=== PATIENT | female | born 1990 | race Caucasian/White ===

== ENCOUNTER 2019-06-27 06:01 | Emergency (ER) | payer SELFPAY ==
[2019-06-27] MEDS ORDERED: Ketorolac 60 MG/2 ML SDV IM ONE (07:08)
[2019-06-27 07:11] VITALS: BP 119/72
--- NOTE | 2019-06-27 07:16 | EDM.PDOC ---
ED HPI GENERAL MEDICAL PROBLEM - General Chief Complaint: Abdominal Pain Stated Complaint: SEVERE LOWER ABD PAIN Time Seen by Provider: 06/27/19 07:00 Source of Information: Reports: Patient, Old Records History Limitations: Reports: No Limitations - History of Present Illness INITIAL COMMENTS - FREE TEXT/NARRATIVE: 29 yo female from [place] presents with pelvic pain that began about 3 days ago. Pain is constant, but she has surges of severe pain. No fever, but has " hot flashes". No vaginal discharge. May have a missed menses. Has not been to her doctor. Was taking Midol until 7 pm last night without relief. No dysuria. Is having some loose stools. No vomiting. Feels like her cervix is burning or dilating. Here with her male significant other. Onset: Gradual Onset Date: 06/24/19 Duration: Day(s): (3), Getting Worse, Waxing/Waning Location: Reports: Pelvis Quality: Reports: Dull, Other (with abrupt exacerbations.) Severity: Moderate (most of the time.) Improves with: Reports: None Worsens with: Reports: Other (time) Context: Reports: Other (See HPI) Associated Symptoms: Reports: Other (loose stools, ? missed menses). Denies: Fever/Chills, Nausea/Vomiting Treatments DOORSHAKER: Reports: Other (see below) (none for 12 hrs) lower abd/pelvic pain Pain Score (Numeric/FACES): 5 - Related Data Allergies Allergy/AdvReac Type Severity Reaction Status Date / Time No Known Allergies Allergy Verified 06/27/19 07:20 Home Meds: Home Meds hydrOXYzine HCl [hydrOXYzine] 1 tab PO QID PRN 05/09/19 [History] Past Medical History HEENT History: Reports: Impaired Vision [employer] History: Reports: , Spontaneous Musculoskeletal History: Reports: Fracture Neurological History: Reports: Headaches, Chronic, Head Trauma, Seizure Psychiatric History: Reports: Anxiety - Infectious Disease History Infectious Disease History: Reports: Chicken Pox - Past Surgical History Female Surgical History: Reports: Section, Tubal Ligation Social & Family History - Tobacco Use Smoking Status *Q: Current Every Day Smoker Years of Tobacco use: 15 Packs/Tins Daily: 0.5 - Caffeine Use Caffeine Use: Reports: Coffee, Soda - Recreational Drug Use Recreational Drug Use: No ED ROS GENERAL - Review of Systems Review Of Systems: See Below Constitutional: Reports: No Symptoms HEENT: Reports: No Symptoms Respiratory: Reports: No Symptoms Cardiovascular: Reports: No Symptoms Endocrine: Reports: No Symptoms GI/Abdominal: Reports: Diarrhea, Nausea (mild at times). Denies: Abdominal Pain , Anorexia, Black Stool, Bloody Stool, Constipation, Distension, Flatus, Hematemesis, Hematochezia, Melena, Vomiting : Reports: Pain (pelvic). Denies: Discharge, Dysuria, Flank Pain, Hematuria, Urgency, Urinary Retention Musculoskeletal: Reports: No Symptoms Skin: Reports: No Symptoms Neurological: Reports: No Symptoms Psychiatric: Reports: No Symptoms ED EXAM, RENAL/ - Physical Exam Exam: See Below Exam Limited By: No Limitations General Appearance: Alert, WD/WN, No Apparent Distress Eye Exam: Bilateral Eye: Normal Inspection Ears: Normal External Exam, Normal Canal, Hearing Grossly Normal, Normal TMs Nose: Normal Inspection, No Blood Throat/Mouth: Normal Inspection, Normal Lips, Normal Oropharynx, Normal Voice, No Airway Compromise Head: Atraumatic, Normocephalic Neck: Normal Inspection Respiratory/Chest: No Respiratory Distress, Lungs Clear, Normal Breath Sounds, No Accessory Muscle Use Cardiovascular: Regular Rate, Rhythm, No Edema GI/Abdominal: Normal Bowel Sounds, Soft, Non-Tender, No Distention (Female) Exam: Other (some extreme lower pelvic tenderness with palpation. Cervical motion tenderness noted with pelvic exam. ) Back Exam: Normal Inspection. No: CVA Tenderness (R), CVA Tenderness (L) Extremities: Normal Inspection, Normal Range of Motion, Non-Tender, No Pedal Edema Neurological: Alert, Oriented, CN II-XII Intact, Normal Cognition, No Motor/ Sensory Deficits Psychiatric: Normal Affect, Normal Mood Skin Exam: Warm, Dry, Intact, Normal Color, No Rash Course - Vital Signs Last Recorded V/S: Last Vital Signs Temp 36.6 C 06/27/19 09:21 Pulse 70 06/27/19 09:21 Resp 15 06/27/19 09:21 BP 119/72 06/27/19 09:21 Pulse Ox 100 06/27/19 09:21 - Orders/Labs/Meds Orders: Active Orders 24 hr Category Date Time Status Transvaginal Non OB [US] Stat Exams 06/27/19 Taken CHLAMYDIA/GC AMPLIFICATION Stat Lab 06/27/19 09:21 Received CULTURE GENITAL [RM] Stat Lab 06/27/19 09:21 Received Doxycycline [Vibramycin] Med 06/27/19 09:37 Once 100 mg PO ONETIME ONE cefTRIAXone [Rocephin] Med 06/27/19 09:37 Once 500 mg IM ONETIME ONE Labs: Laboratory Tests 06/27/19 06/27/19 06/27/19 Range/Units 07:07 07:09 07:09 WBC 11.9 H (4.5-11.0) K/uL RBC 4.27 (3.30-5.50) M/uL Hgb 13.0 (12.0-15.0) g/dL Hct 40.0 (36.0-48.0) % MCV 94 (80-98) fL MCH 30 (27-31) pg MCHC 33 (32-36) % Plt Count 236 (150-400) K/uL C-Reactive Protein (0.0-0.3) mg/dL Urine Color Yellow (YELLOW) Urine Appearance Cloudy A (CLEAR) Urine pH 6.0 (5.0-8.0) Ur Specific Roxie 1.025 (1.008-1.030) Urine Protein Negative (NEGATIVE) mg/dL Urine Glucose (UA) Normal (NEGATIVE) mg/dL Urine Ketones Negative (NEGATIVE) mg/dL Urine Occult Blood Negative (NEGATIVE) Urine Nitrite Negative (NEGATIVE) Urine Bilirubin Negative (NEGATIVE) Urine Urobilinogen 0.2 (0.2-1.0) EU/dL Ur Leukocyte Esterase Trace H (NEGATIVE) Urine RBC 0-5 (0-5) Urine WBC 0-5 (0-5) Ur Epithelial Cells Few Amorphous Sediment Not seen Urine Bacteria Few Urine Mucus Rare Urine HCG, Qual Negative Fluid Type Fluid pH 06/27/19 06/27/19 Range/Units 07:15 09:20 WBC (4.5-11.0) K/uL RBC (3.30-5.50) M/uL Hgb (12.0-15.0) g/dL Hct (36.0-48.0) % MCV (80-98) fL MCH (27-31) pg MCHC (32-36) % Plt Count (150-400) K/uL C-Reactive Protein 7.25 H (0.0-0.3) mg/dL Urine Color (YELLOW) Urine Appearance (CLEAR) Urine pH (5.0-8.0) Ur Specific Roxie (1.008-1.030) Urine Protein (NEGATIVE) mg/dL Urine Glucose (UA) (NEGATIVE) mg/dL Urine Ketones (NEGATIVE) mg/dL Urine Occult Blood (NEGATIVE) Urine Nitrite (NEGATIVE) Urine Bilirubin (NEGATIVE) Urine Urobilinogen (0.2-1.0) EU/dL Ur Leukocyte Esterase (NEGATIVE) Urine RBC (0-5) Urine WBC (0-5) Ur Epithelial Cells Amorphous Sediment Urine Bacteria Urine Mucus Urine HCG, Qual Fluid Type Pelvic fluid Fluid pH 7 Meds: Medications Discontinued Medications Generic Name Dose Route Start Last Admin Trade Name Freq PRN Reason Stop Dose Admin Ketorolac Tromethamine 60 mg 06/27/19 07:08 06/27/19 07:21 Toradol IM 06/27/19 07:09 60 mg ONETIME ONE Administration Metronidazole 500 mg 06/27/19 09:36 Metronidazole PO 06/27/19 09:37 ONETIME ONE - Radiology Interpretation Free Text/Narrative:: pelvic US-neg Departure - Departure Time of Disposition: 10:00 Disposition: Home, Self-Care 01 Condition: Fair Clinical Impression: Pelvic inflammatory disease (PID) - Discharge Information *PRESCRIPTION DRUG MONITORING PROGRAM REVIEWED*: No *COPY OF PRESCRIPTION DRUG MONITORING REPORT IN PATIENT DAYAN: No Instructions: Pelvic Inflammatory Disease, [id number] Referrals: Fariba Hernandez MD [Primary Care Provider] - Forms: ED Department Discharge Additional Instructions: Take metronidazole and doxycycline as directed for infection. Take ibuprofen 600 mg every 6 hrs with food and/or acetaminophen up to 1000 mg every 6 hrs as needed for pain control. Recheck with your provider on Sunday to follow up on outstanding cultures. No sex without condoms until you are culture negative for infections. - My Orders Last 24 Hours: My Active Orders 06/27/19 Transvaginal Non OB [US] Stat 06/27/19 09:21 CHLAMYDIA/GC AMPLIFICATION Stat CULTURE GENITAL [RM] Stat 06/27/19 09:37 Doxycycline [Vibramycin] 100 mg PO ONETIME ONE cefTRIAXone [Rocephin] 500 mg IM ONETIME ONE - Assessment/Plan Last 24 Hours: My Active Orders 06/27/19 Transvaginal Non OB [US] Stat 06/27/19 09:21 CHLAMYDIA/GC AMPLIFICATION Stat CULTURE GENITAL [RM] Stat 06/27/19 09:37 Doxycycline [Vibramycin] 100 mg PO ONETIME ONE cefTRIAXone [Rocephin] 500 mg IM ONETIME ONE
--- NOTE | 2019-06-27 08:58 | CRLUS ---
INDICATION: Pelvic pain. FINDINGS: A transabdominal and endovaginal pelvic ultrasound shows a uterus of normal size, contour, and echogenicity. Normal appearance of the endometrial stripe which measures 5 mm in thickness. Normal sonographic appearance of the ovaries with a 1.3 cm dominant follicle in the right ovary. The right ovary measures 5.1 x 2.3 x 2.2 cm and left ovary measures 4.2 x 3.1 x 1.8 cm. Color and spectral Doppler analysis shows normal arterial and venous blood flow to both ovaries. Trace amount of simple free fluid in the pelvis. IMPRESSION: 1. No acute abnormalities of the uterus or ovaries identified. Dictated by Dash Velasquez MD @ 06/27/2019 8:58:07 AM Dictated by: Dash Velasquez MD @ 06/27/2019 08:58:16 (Electronically Signed)
[2019-06-27] MEDS ORDERED: metroNIDAZOLE 250 MG Tab PO ONE (09:36)
[2019-06-27] MEDS ORDERED: cefTRIAXone 500 MG Vial IM ONE (09:37)
[2019-06-27] MEDS ORDERED: Doxycycline 100 MG Cap PO ONE (09:37)
[2019-06-27] MEDS ORDERED: cefTRIAXone 500 MG, Lidocaine 1% 1 ML IM ONE ×2 (10:00)
[2019-06-29 12:07] LABS: CHLAMYDIA TRACHOMATIS, NAA Negative (Negative); NEISSERIA GONORRHOEAE, NAA Negative (Negative)
== END 2019-06-27 10:11 | disposition home or self-care (01) ==
LOC: JP.ED 06:01
DX: N73.9 Female pelvic inflammatory disease, unspecified (principal); F41.9 Anxiety disorder, unspecified; F17.210 Nicotine dependence, cigarettes, uncomplicated; Z79.899 Other long term (current) drug therapy
CPT/HCPCS: 36415; 76830; 76856; 81001; 81025; 83986; 85027; 86140; 87070; 87491; 87591; 96372; 99284; A9270; J0696; J1885; J2001

== ENCOUNTER 2022-06-20 13:00 | Emergency (ER) | payer MEDICAID ==
[2022-06-20 13:14] VITALS: BP 114/74; PULSE 58
[2022-06-20] MEDS: Ibuprofen 800 MG Tab PO ONE (14:26)
== END 2022-06-20 14:45 | disposition left against medical advice (07) ==
LOC: JP.ED 13:00
DX: S16.1XXA Strain of muscle, fascia and tendon at neck level, initial encounter (principal); S00.03XA Contusion of scalp, initial encounter; Z91.018 Allergy to other foods; Z79.899 Other long term (current) drug therapy; W22.8XXA Striking against or struck by other objects, initial encounter
CPT/HCPCS: 70450; 72125; 99283; A9270